=== PATIENT | male | born 1990 | race Hispanic/Latino ===

== ENCOUNTER 2017-07-04 02:17 | Emergency (ER) | payer OTHER ==
[2017-07-04 02:30] VITALS: O2SAT 99
--- NOTE | 2017-07-04 02:55 | ED PDOC ---
Upper Extremity Pain/Injury Time Seen by Provider: 07/04/17 02:32 Chief Complaint (Nursing): Finger,Hand,&Wrist Chief Complaint (Provider): right wrist pain History Per: Patient History/Exam Limitations: no limitations Onset/Duration Of Symptoms: Hrs Current Symptoms Are (Timing): Still Present Additional History Per: Patient Additional Complaint(s): 27 y/o male history of gout presents with right wrist pain x 1 day. Patient states his presentation is usually atypical; but admits to similar presentation in the past. He notes pain to radial aspect right wrist, worse with movement, worsening as the day progressed. Denies fever, numbness/weakness right upper extremity, redness to area, trauma to area. Past Medical History Reviewed: Historical Data, Nursing Documentation, Vital Signs Vital Signs: Last Vital Signs Temp 98.8 F 07/04/17 02:28 Pulse 110 H 07/04/17 02:28 Resp 18 07/04/17 02:28 BP 155/96 H 07/04/17 02:28 Pulse Ox 99 07/04/17 02:28 - Medical History Other PMH: gout - Surgical History Surgical History: No Surg Hx - Family History Family History: States: Unknown Family Hx - Home Medications Home Medications: Ambulatory Orders Medication Instructions Recorded Colchicine 0.6 mg PO ONCE #1 tablet 08/30/16 Indomethacin [Indocin] 50 mg PO TID #21 cap 08/30/16 Indomethacin [Indocin] 50 mg PO TID PRN #21 cap 07/04/17 - Allergies Allergies/Adverse Reactions: Allergies Allergy/AdvReac Type Severity Reaction Status Date / Time Penicillins Allergy RASH Verified 07/04/17 02:28 Review of Systems ROS Statement: Except As Marked, All Systems Reviewed And Found Negative Musculoskeletal: Positive for: Hand Pain (right wrist) Physical Exam - Reviewed Nursing Documentation Reviewed: Yes Vital Signs Reviewed: Yes - Physical Exam Appears: Positive for: Well, Non-toxic, No Acute Distress Pulses-Radial (L): 2+ Pulses-Radial (R): 2+ Extremity: Positive for: Tenderness (radial aspect right wrist; no swelling, erythema, deformity. Limited ROM due to pain), Capillary Refill (<2sec b/l UE) Neurologic/Psych: Positive for: Alert, Oriented. Negative for: Motor/Sensory Deficits - ECG O2 Sat by Pulse Oximetry: 99 - Other Rad xray right wrist X-Ray: Viewed By Me X-Ray Interpretation: no acute findings - Progress ED Course And Treament: Toradol IM, xray Patient educated on findings, given Colchicine gout treatment doses in ED. Wrist immobilizer given for comfort. Rx Indomethacin provided. Advised RICE, follow up PMD 2-3 days. Return to ED for worsening/concerning symptoms. Disposition - Clinical Impression Clinical Impression: Gout attack - Patient ED Disposition Is Patient to be Admitted: No Counseled Patient/Family Regarding: Studies Performed, Diagnosis, Need For Followup, Rx Given - Disposition Referrals: [facility] [Outside] Disposition: Routine/Home Disposition Time: 04:57 Condition: IMPROVED Prescriptions: Indomethacin [Indocin] 50 mg PO TID PRN #21 cap PRN Reason: Pain, Moderate (4-7) Instructions: Gout (ED)
[2017-07-04 04:58] VITALS: BP 127/80; PULSE 90; RESP 17; TEMP 99
--- NOTE | 2017-07-04 08:48 | RAD ---
PROCEDURE: Right Wrist Radiographs. Bold HISTORY: atraumatic radial pain, history of gout COMPARISON: None. FINDINGS: BONES: Normal. No fracture. JOINTS: Normal. No dislocation. SOFT TISSUES: Normal. OTHER FINDINGS: None. IMPRESSION: Normal right wrist radiographs. Please note: No preliminary report/ innterpretation of this examination provided by emergency department personnel.
== END 2017-07-04 05:09 | disposition home or self-care (01) ==
LOC: H.ER 02:17
DX: M10.9 Gout, unspecified (principal)
CPT/HCPCS: 73110; 96372; 99283; J1885

== ENCOUNTER 2018-06-12 07:58 | Emergency (ER) | payer BC, OTHER ==
[2018-06-12 08:04] VITALS: TEMP 97
[2018-06-12 08:05] VITALS: BMI 39.9
--- NOTE | 2018-06-12 08:19 | ED PDOC ---
Lower Extremity Pain/Injury Time Seen by Provider: 06/12/18 08:06 Chief Complaint (Nursing): Lower Extremity Problem/Injury Chief Complaint (Provider): Lower Extremity Problem/Injury History Per: Patient History/Exam Limitations: no limitations Onset/Duration Of Symptoms: Days (2) Additional Complaint(s): 28 years old male presents to the ED for evaluation of left calf pain onset 2 days. Patient reports recent travel on airplane. He denies any shortness of breath. PMD: non provided Past Medical History Reviewed: Historical Data, Nursing Documentation, Vital Signs Vital Signs: Last Vital Signs Temp 97 F L 06/12/18 08:03 Pulse 82 06/12/18 08:03 Resp 18 06/12/18 08:03 BP 141/92 H 06/12/18 08:03 Pulse Ox 100 06/12/18 08:03 - Medical History PMH: No Chronic Diseases - Surgical History Surgical History: No Surg Hx - Family History Family History: States: Unknown Family Hx - Social History Current smoker - smoking cessation education provided: Yes Alcohol: Social Drugs: Denies - Home Medications Home Medications: Ambulatory Orders Medication Instructions Recorded Colchicine 0.6 mg PO ONCE #1 tablet 08/30/16 Indomethacin [Indocin] 50 mg PO TID #21 cap 08/30/16 Indomethacin [Indocin] 50 mg PO TID PRN #21 cap 07/04/17 Naproxen [Naprosyn] 500 mg PO Q12H #20 tab 06/12/18 - Allergies Allergies/Adverse Reactions: Allergies Allergy/AdvReac Type Severity Reaction Status Date / Time Penicillins Allergy RASH Verified 07/04/17 02:28 Review of Systems ROS Statement: Except As Marked, All Systems Reviewed And Found Negative Respiratory: Negative for: Shortness of Breath Musculoskeletal: Positive for: Leg Pain (Left calf pain) Physical Exam - Reviewed Nursing Documentation Reviewed: Yes Vital Signs Reviewed: Yes - Physical Exam Appears: Positive for: Non-toxic, No Acute Distress Head Exam: Positive for: ATRAUMATIC, NORMOCEPHALIC Skin: Positive for: Normal Color, Warm, Dry Extremity: Positive for: Tenderness (of left calf). Negative for: Swelling (of left calf), Other (Erythema of left calf) Neurologic/Psych: Positive for: Alert, Oriented (x3) - ECG O2 Sat by Pulse Oximetry: 100 (RA) Pulse Ox Interpretation: Normal Medical Decision Making Medical Decision Making: Time: 814 Initial Plan: --Duplex Lower Extremity US ----- Scribe Attestation: Documented by Sophia Mistry, acting as a scribe for Pepito Bates MD. Provider Scribe Attestation: All medical record entries made by the Scribe were at my direction and personally dictated by me. I have reviewed the chart and agree that the record accurately reflects my personal performance of the history, physical exam, medical decision making, and the department course for this patient. I have also personally directed, reviewed, and agree with the discharge instructions and disposition. Disposition - Clinical Impression Clinical Impression: Muscle strain - Patient ED Disposition Is Patient to be Admitted: No Counseled Patient/Family Regarding: Studies Performed, Diagnosis, Need For Followup, Rx Given - Disposition Referrals: [facility] [Outside] Disposition: Routine/Home Disposition Time: 10:02 Condition: FAIR Prescriptions: Naproxen [Naprosyn] 500 mg PO Q12H #20 tab Instructions: Muscle Strain Forms: [employer] (Japanese)
[2018-06-12 10:16] VITALS: BP 128/78; PULSE 78; RESP 19; O2SAT 98
--- NOTE | 2018-06-12 11:31 | US ---
Date of service: 06/12/2018 PROCEDURE: Left Lower Extremity Venous Ultrasound HISTORY: calf pain COMPARISON: None available. TECHNIQUE: Grayscale and duplex Doppler ultrasonography was performed at the major deep veins of the left lower extremity including graded compression and augmentation. FINDINGS: Bilateral compressibility, augmentation and spontaneous color Doppler blood flow is identified including normal phasic waveforms identified at the left common and superficial femoral as well as popliteal veins with no ultrasound evidence of deep venous thrombosis appreciated. Post tibial vein is patent as imaged. IMPRESSION: No ultrasound evidence of deep venous thrombosis left lower extremity.
== END 2018-06-12 10:17 | disposition home or self-care (01) ==
LOC: H.ER 07:58
DX: S86.812A Strain of other muscle(s) and tendon(s) at lower leg level, left leg, initial encounter (principal); Y92.89 Other specified places as the place of occurrence of the external cause; Z88.0 Allergy status to penicillin